=== PATIENT | female | born 2000 | race American Indian/Alaskan Native ===

== ENCOUNTER 2018-09-15 13:23 | Emergency (ER) | payer OTHER ==
--- NOTE | 2018-09-15 13:34 | Emergency Department Report ---
Blank Doc - Documentation Documentation: 17 y/o c/o 1 week history of coryza, sore throat, cephalgia, and occasional di zziness since onset. No fever. Also hurt left hallux 1 month ago and thinks she has an infection on toe wants medication for it too.
--- NOTE | 2018-09-15 15:49 | XRay Report ---
PROCEDURE: XR CHEST ROUTINE 2V TECHNIQUE: Chest radiograph, PA and lateral views. HISTORY: cough COMPARISONS: None currently available. FINDINGS: Cardiac silhouette is within normal limits. There is no effusion. There is no pneumothorax. There is no consolidation. Mild bilateral perihilar p eribronchial thickening. There are no suspicious osseous lesions. IMPRESSION: * Pulmonary findings may represent pneumonia (possibly viral), bronchiolitis/bronchitis, or reactive airway disease. This document is electronically signed by Andrew Oswald MD., Sep 15 2018 03:46:54 PM ET
[2018-09-15] MEDS ORDERED: IBUPROFEN PO ONE (17:49)
[2018-09-15] MEDS ORDERED: XYLOCAINE 1% MPF 5 mL INFILTRATI ONE (17:50)
[2018-09-15] MEDS ORDERED: ROCEPHIN IM ONE (17:50)
--- NOTE | 2018-09-15 18:16 | Emergency Department Report ---
- General Chief Complaint: Extremity Problem,Nontraumatic Stated Complaint: LFT FOOT/BODY ACHES PAIN Time Seen by Provider: 09/15/18 13:32 Source: patient Mode of arrival: Ambulatory Limitations: No Limitations - History of Present Illness Initial Comments: This is a 17-year-old female nontoxic, well nourished in appearance, no acute signs of distress presents to the ED with c/o of productive cough, fever, chills, body aches, rhinorrhea, frontal sinus pain, nasal congestion x2 days. Patient also has a secondary complaint of left great toe pain. Patient stated that this happened last month and half of her nail fell of. Patient otherwise denies any other trauma. Patient describes productive cough as yellow mucus production. Patient denies any sick contact. Patient denies any calf pain or calf tenderness. Patient denies any chest pain, short of breath, nausea, vomiting, hemoptysis, numbness, tingling, headache or stiff neck. Patient denies any allergies or PMH. MD Complaint: fever, cough, sore throat, rhinorrhea, nasal congestion, sinus pain, other (left toe pain) -: days(s) (2) Severity: mild Severity scale (0 -10): 8 Quality: aching Consistency: constant Improves With: nothing Worsens With: nothing Associated Symptoms: fever, chills, rhinorrhea, nasal congestion, sore throat, cough. denies: myalgias, diaphoresis, headache, stiff neck, chest pain, shortness of breath, abdominal pain, nausea, vomiting, diarrhea, dysuria, rash, confusion, right sweats, weight loss, epistaxis, hoarseness, ear pain Treatments Prior to Arrival: none - Related Data Previous Rx's Medication Instructions Recorded Last Taken Type Azithromycin [Zithromax Z-JACEK] 250 mg PO DAILY #6 tablet 09/15/18 Unknown Rx Benzonatate [Tessalon Perles] 100 mg PO Q8HR PRN #20 capsule 09/15/18 Unknown Rx Ibuprofen [Motrin] 600 mg PO Q8H PRN #20 tablet 09/15/18 Unknown Rx Prednisone [predniSONE 10 mg 10 mg PO .TAPER #1 tab.ds.pk 09/15/18 Unknown Rx (6-Day Pack, 21 Tabs)] Allergies Allergy/AdvReac Type Severity Reaction Status Date / Time No Known Allergies Allergy Unverified 09/15/18 13:26 ED Review of Systems ROS: Stated complaint: LFT FOOT/BODY ACHES PAIN Other details as noted in HPI Constitutional: chills, fever Eyes: denies: eye pain, eye discharge, vision change ENT: throat pain, congestion. denies: ear pain Respiratory: cough. denies: shortness of breath, wheezing Cardiovascular: denies: chest pain, palpitations Endocrine: no symptoms reported Gastrointestinal: denies: abdominal pain, nausea, diarrhea Genitourinary: denies: urgency, dysuria, discharge Musculoskeletal: denies: back pain, joint swelling, arthralgia Skin: denies: rash, lesions Neurological: other (frontal sinua pain). denies: headache, weakness, paresthesias Psychiatric: denies: anxiety, depression Hematological/Lymphatic: denies: easy bleeding, easy bruising ED Past Medical Hx - Past Medical History Previous Medical History?: No - Surgical History Past Surgical History?: No - Social History Smoking Status: Never Smoker Substance Use Type: None - Medications Home Medications: Home Medications Medication Instructions Recorded Confirmed Last Taken Type Azithromycin [Zithromax Z-JACEK] 250 mg PO DAILY #6 tablet 09/15/18 Unknown Rx Benzonatate [Tessalon Perles] 100 mg PO Q8HR PRN #20 capsule 09/15/18 Unknown Rx Ibuprofen [Motrin] 600 mg PO Q8H PRN #20 tablet 09/15/18 Unknown Rx Prednisone [predniSONE 10 mg 10 mg PO .TAPER #1 tab.ds.pk 09/15/18 Unknown Rx (6-Day Pack, 21 Tabs)] ED Physical Exam - General Limitations: No Limitations General appearance: alert, in no apparent distress - Head Head exam: Present: atraumatic, normocephalic - Eye Eye exam: Present: normal appearance, PERRL, EOMI Pupils: Present: normal accommodation - ENT ENT exam: Present: normal exam, normal orophraynx - Neck Neck exam: Present: normal inspection, full ROM. Absent: tenderness, meningismus, lymphadenopathy - Respiratory Respiratory exam: Present: normal lung sounds bilaterally. Absent: respiratory distress, wheezes, rales, rhonchi, stridor, chest wall tenderness, accessory muscle use, decreased breath sounds, prolonged expiratory - Cardiovascular Cardiovascular Exam: Present: regular rate, normal rhythm, tachycardia, normal heart sounds. Absent: bradycardia, irregular rhythm, systolic murmur, diastolic murmur, rubs, gallop - Extremities Exam Extremities exam: Present: normal inspection, full ROM, normal capillary refill. Absent: tenderness - Expanded Lower Extremity Exam Left Foot/Toe exam: Present: normal inspection, full ROM, nail avulsion (half but is healing well). Absent: tenderness, swelling, abrasion, laceration, ecchymosis, deformity, crepidus, dislocation, erythema, amputation, puncture wound, foreign body, calcaneal tenderness, tenderness at base of 5th metatarsal, subungual hematoma Neuro vascular tendon exam: Present: no vascular compromise Gait: Positive: observed and normal - Back Exam Back exam: Present: normal inspection, full ROM. Absent: tenderness, CVA tenderness (R), CVA tenderness (L), muscle spasm, paraspinal tenderness, vertebral tenderness, rash noted - Neurological Exam Neurological exam: Present: alert, oriented X3, normal gait - Psychiatric Psychiatric exam: Present: normal affect, normal mood - Skin Skin exam: Present: warm, dry, intact, normal color. Absent: rash - Other Other exam information: Positive frontal sinus tenderness ED Course Vital Signs 09/15/18 13:33 Temperature 100.7 F H Pulse Rate 109 H Respiratory 18 Rate Blood Pressure 127/85 O2 Sat by Pulse 99 Oximetry - Reevaluation(s) Reevaluation #1: 09/15/18 18:32 Patient is speaking in full sentences with no signs of distress noted. ED Medical Decision Making - Medical Decision Making This is a 17-year-old female that presents with pneumonia and left great toe nail avulsion. Patient is stable and was examined by me. Chest x-ray has been obtained and dictated by radiologist with normal exam. Patient is notified of x-ray results with no questions noted. Patient received Rocephin IM and patient be discharged with azithromycin. Patient does have normal gait with no tenderness and no joint swelling. No ecchymosis. no joint redness or swelling. Not warm to touch. No signs of cellulites present. P Patient was instructed to increase hydration, rest and take Motrin for fever episodes. Patient received motrin in the ED. Vitals stable. Patient is nonfebrile and normal heart rate. Patient was instructed Follow-up with a primary care doctor in 3-5 days or if symptoms worsen and continue return to emergency room as soon as possible. At time time of discharge, the patient does not seem toxic or ill in appearance. No acute signs of distress noted. Patient agrees to discharge treatment plan of care. No further questions noted by the patient. Critical care attestation.: If time is entered above; I have spent that time in minutes in the direct care of this critically ill patient, excluding procedure time. ED Disposition Clinical Impression: Pneumonia Qualifiers: Pneumonia type: due to unspecified organism Laterality: bilateral Lung location: unspecified part of lung Qualified Code(s): J18.9 - Pneumonia, unspecified organism Nail avulsion of toe Qualifiers: Encounter type: initial encounter Qualified Code(s): S91.209A - Unspecified open wound of unspecified toe(s) with damage to nail, initial encounter Disposition: TO HOME OR SELFCARE Is pt being admited?: No Does the pt Need Aspirin: No Condition: Stable Instructions: Bacterial Pneumonia (ED) Additional Instructions: Follow-up with a primary care doctor in 3-5 days or if symptoms worsen and continue return to emergency room as soon as possible. Increase rest, hydration, and take Motrin as prescribed during fever episodes. Prescriptions: Ibuprofen [Motrin] 600 mg PO Q8H PRN #20 tablet PRN Reason: Pain/Fever Prednisone [predniSONE 10 mg (6-Day Pack, 21 Tabs)] 10 mg PO .TAPER #1 tab.ds.pk Benzonatate [Tessalon Perles] 100 mg PO Q8HR PRN #20 capsule PRN Reason: Cough Azithromycin [Zithromax Z-JACEK] 250 mg PO DAILY #6 tablet [facility]Primary Care Provider] - 3-5 Days PRIMARY MD KAUR [Referring] - 3-5 Days NEMESIO ALMODOVAR MD [Staff Physician] - 3-5 Days [facility] [Outside] - 3-5 Days [facility] [Outside] - 3-5 Days Forms: Work/School Release Form(ED)
[2018-09-15 19:08] VITALS: BP 125/78
== END 2018-09-15 19:08 | disposition home or self-care (01) ==
LOC: ED 13:23
DX: J18.9 Pneumonia, unspecified organism (principal); S91.209A Unspecified open wound of unspecified toe(s) with damage to nail, initial encounter; W22.8XXA Striking against or struck by other objects, initial encounter; Y93.89 Activity, other specified; Y92.89 Other specified places as the place of occurrence of the external cause; Y99.8 Other external cause status
CPT/HCPCS: 71046; 96372; 99283; J0696

== ENCOUNTER 2021-03-21 08:12 | Emergency (ER) | payer SELFPAY ==
[2021-03-21 08:18] VITALS: BP 131/61
[2021-03-21] MEDS ORDERED: predniSONE 20 MG TAB PO ONE (08:42)
[2021-03-21] MEDS ORDERED: CYCLOBENZAPRINE 10 MG TAB PO ONE (08:42)
--- NOTE | 2021-03-21 08:43 | Emergency Department Report ---
ED Back Pain/Injury HPI - General Chief Complaint: Fall Stated Complaint: spine pain, dizzy Time Seen by Provider: 03/21/21 08:27 Source: patient Limitations: No Limitations - History of Present Illness Initial Comments: Patient is a 20-year-old female that comes to the emergency room 2 weeks after falling. She did not take anything of it at the time but since then she has not iced that certain ways that she moves her back hurts. She denies any dysuria, frequency, urgency, fever or chills. Pain is reproducible with movement. MD Complaint: back pain -: Gradual, week(s) Similar Symptoms Previously: No Place: home Radiation: none Severity: mild Severity scale (0 -10): 3 Quality: aching Consistency: intermittent Improves With: none Worsens With: none Associated Symptoms: denies other symptoms - Related Data Previous Rx's Medication Instructions Recorded Last Taken Type Cyclobenzaprine [Flexeril] 10 mg PO TID PRN #10 tablet 03/21/21 Unknown Rx Allergies Allergy/AdvReac Type Severity Reaction Status Date / Time No Known Allergies Allergy Verified 03/21/21 08:38 ED Review of Systems ROS: Stated complaint: spine pain, dizzy Other details as noted in HPI Comment: All other systems reviewed and negative ED Past Medical Hx - Past Medical History Previous Medical History?: Yes Hx Asthma: Yes - Surgical History Past Surgical History?: No Additional Surgical History: denies - Family History Family history: no significant - Social History Smoking Status: Never Smoker Substance Use Type: Marijuana - Medications Home Medications: Home Medications Medication Instructions Recorded Confirmed Last Taken Type Cyclobenzaprine [Flexeril] 10 mg PO TID PRN #10 tablet 03/21/21 Unknown Rx ED Physical Exam - General Limitations: No Limitations General appearance: alert, in no apparent distress - Head Head exam: Present: atraumatic, normocephalic - Eye Eye exam: Present: normal appearance - ENT ENT exam: Present: mucous membranes moist - Neck Neck exam: Present: normal inspection - Respiratory Respiratory exam: Present: normal lung sounds bilaterally. Absent: respiratory distress - Cardiovascular Cardiovascular Exam: Present: regular rate, normal rhythm. Absent: systolic murmur, diastolic murmur, rubs, gallop - GI/Abdominal GI/Abdominal exam: Present: soft, normal bowel sounds - Extremities Exam Extremities exam: Present: normal inspection - Back Exam Back exam: Present: normal inspection - Neurological Exam Neurological exam: Present: alert, oriented X3 - Psychiatric Psychiatric exam: Present: normal affect, normal mood - Skin Skin exam: Present: warm, dry, intact, normal color. Absent: rash ED Course Vital Signs 03/21/21 08:16 Temperature 99.0 F Pulse Rate 74 Respiratory 18 Rate Blood Pressure 131/61 O2 Sat by Pulse 100 Oximetry ED Medical Decision Making - Medical Decision Making Labs 03/21/21 10:30 Urine Color Yellow Urine Turbidity Slightly cloudy Urine pH 6.0 Ur Specific [place] 1.016 Urine Protein <15 mg/dl Urine Glucose (UA) Neg Urine Ketones Neg Urine Blood Neg Urine Nitrite Neg Ur Reducing Substances Not Reportable Urine Bilirubin Neg Urine Ictotest Not Reportable Urine Urobilinogen < 2.0 Ur Leukocyte Esterase Neg Urine WBC (Auto) < 1.0 Urine RBC (Auto) 2.0 U Epithel Cells (Auto) 30.0 H Urine Mucus 2+ Urine HCG, Qual Negative Vital Signs 03/21/21 08:16 Temperature 99.0 F Pulse Rate 74 Respiratory 18 Rate Blood Pressure 131/61 O2 Sat by Pulse 100 Oximetry UA noted. Pain is worse with movement. Patient educated on musculoskeletal injury. Patient being discharged home with discharge plan of care including follow-up, medications, diet and activity. She verbalizes understanding of discharge plan of care - Differential Diagnosis MUSCULOSKELETAL PAIN; RO UTI Critical care attestation.: If time is entered above; I have spent that time in minutes in the direct care of this critically ill patient, excluding procedure time. ED Disposition Clinical Impression: Musculoskeletal pain Fall Qualifiers: Encounter type: initial encounter Qualified Code(s): W19.XXXA - Unspecified fall, initial encounter Disposition: HOME / SELF CARE / HOMELESS Is pt being admited?: No Does the pt Need Aspirin: No Condition: Stable Instructions: Musculoskeletal Pain Additional Instructions: CONTINUE MOTRIN AND TYLENOL FOR PAIN FOLLOW UP WITH PCP IF PAIN PERSISTS REFERRAL BELOW MED ORDERED TODAY Prescriptions: Cyclobenzaprine [Flexeril] 10 mg PO TID PRN #10 tablet PRN Reason: Muscle Spasm Referrals: PRIMARY MD KAUR [Primary Care Provider] - 3-5 Days SAMUEL LEMON MD [Staff Physician] - 3-5 Days Time of Disposition: :16
[2021-03-21 10:54] LABS: HCG Qualitative,Urine Negative (Negative)
[2021-03-21 10:57] LABS: Mucus,Urine 2+ /HPF; WBC,Urine < 1.0 /HPF (0.0-6.0)
[2021-03-21 11:02] LABS: Bilirubin,Urine NEG (Negative); Blood,Urine NEG (Negative); Color,Urine Yellow (Yellow); Protein,Urine <15 mg/dL mg/dL (Negative); Urobilinogen,Urine < 2.0 mg/dL (<2.0)
== END 2021-03-21 11:38 | disposition home or self-care (01) ==
LOC: ED 08:12
DX: M79.18 Myalgia, other site (principal); R42 Dizziness and giddiness; M54.6 Pain in thoracic spine; J45.909 Unspecified asthma, uncomplicated; F12.90 Cannabis use, unspecified, uncomplicated; Z79.899 Other long term (current) drug therapy; W18.39XA Other fall on same level, initial encounter; Y93.89 Activity, other specified; Y92.89 Other specified places as the place of occurrence of the external cause; Y99.8 Other external cause status
CPT/HCPCS: 81001; 81025; 99283; J7512